=== PATIENT | female | born 1965 | race Caucasian/White ===

== ENCOUNTER → 2018-02-01 07:04 | Outpatient (CLI) | payer OTHER, SELFPAY ==
--- NOTE | 2018-02-01 07:09 | BI_ITS ---
MAMMOGRAPHY - BILATERAL SCREENING REASON FOR EXAM: Female, 53 years old. Routine annual screening examination. PERTINENT HISTORY: Non-contributory. TECHNIQUE: Digital bilateral breast edith (3D mammographic acquisition) in the CC and MLO projections. 2-D mediolateral oblique (MLO) and craniocaudad (CC) views of both breasts were obtained. CAD: Full Field Digital Mammography with Computer Added Detection was performed. COMPARISON: Comparison is made with prior study dated February 13, 2017 and February 10, 2016. FINDINGS: Breast Composition: There are scattered areas of fibroglandular density. There are no dominant masses or suspicious calcifications. No other significant abnormalities are identified. There has been no significant change since the prior study. BI/SCREENING MAMM (CAD), BILAT IMPRESSION: Stable bilateral screening mammogram. Yearly follow-up mammogram recommended. (A) ASSESSMENT CATEGORY: BIRADS Category 1: Negative. A letter regarding these results will be sent to the patient by the facility within 30 days. Approximately 10% of breast cancers are not detected by mammography. A normal mammogram should not delay biopsy of a clinically suspicious abnormality. [id number] Electronically Signed: Germain Cabello MD at 11:22 EDT Tel [phone], Service support ,
== END ==
PROVIDERS: Family Provider Family Medicine; PCP Family Medicine; Visit Provider Obstetrics & Gynecology
DX: Z12.31 Encounter for screening mammogram for malignant neoplasm of breast (principal)
CPT/HCPCS: 77063; 77067

== ENCOUNTER → 2019-02-04 | Outpatient (CLI) | payer OTHER, SELFPAY ==
--- NOTE | 2019-02-04 07:18 | BI_ITS ---
MAMMOGRAPHY - BILATERAL SCREENING REASON FOR EXAM: Female, 54 years old. Routine annual screening examination. PERTINENT HISTORY: Non-contributory. TECHNIQUE: Digital bilateral breast hali (3D mammographic acquisition) in the CC and MLO projections. 2-D mediolateral oblique (MLO) and craniocaudad (CC) views of both breasts were obtained. CAD: Full Field Digital Mammography with Computer Added Detection was performed. COMPARISON: Comparison is made with prior study dated February 01, 2018 and February 13, 2017. FINDINGS: Breast Composition: There are scattered areas of fibroglandular density. There are no dominant masses or suspicious calcifications. No other significant abnormalities are identified. There has been no significant change since the prior study. BI/SCREEN MAMM (CAD) W/HALI BILAT IMPRESSION: Stable bilateral screening mammogram. Yearly follow-up mammogram recommended. (A) ASSESSMENT CATEGORY: BIRADS Category 1: Negative. A letter regarding these results will be sent to the patient by the facility within 30 days. Approximately 10% of breast cancers are not detected by mammography. A normal mammogram should not delay biopsy of a clinically suspicious abnormality. [id number] Electronically Signed: Germain Cabello, at 8:55 EDT , Service support ,
== END | disposition home or self-care (01) ==
LOC: OPBI 07:17
PROVIDERS: Family Provider Family Medicine; PCP Family Medicine; Referring Provider Obstetrics & Gynecology; Visit Provider Obstetrics & Gynecology
DX: Z12.31 Encounter for screening mammogram for malignant neoplasm of breast (principal)
CPT/HCPCS: 77063; 77067

== ENCOUNTER → 2020-03-05 | Outpatient (CLI) | payer OTHER, SELFPAY ==
[2020-03-09 13:49] LABS: HPV APTIMA, High Risk Negative (Negative)
== END | disposition home or self-care (01) ==
LOC: LABSPEC 11:32
PROVIDERS: PCP Family Medicine; Visit Provider Obstetrics & Gynecology
DX: Z12.4 Encounter for screening for malignant neoplasm of cervix (principal)
CPT/HCPCS: 87624; 88175; G0145

== ENCOUNTER → 2020-03-09 08:36 | Outpatient (CLI) | payer OTHER, SELFPAY ==
--- NOTE | 2020-03-09 08:39 | BI_ITS ---
MAMMOGRAPHY - BILATERAL SCREENING REASON FOR EXAM: Female, 55 years old. Routine annual screening examination. PERTINENT HISTORY: Non-contributory. TECHNIQUE: Digital bilateral breast hali (3D mammographic acquisition) in the CC and MLO projections. 2-D mediolateral oblique (MLO) and craniocaudad (CC) views of both breasts were obtained. CAD: Full Field Digital Mammography with Computer Added Detection was performed. COMPARISON: Comparison is made with prior study dated 02/04/2019 and 02/01/2018. FINDINGS: Breast Composition: There are scattered areas of fibroglandular density. There are no dominant masses or suspicious calcifications. No other significant abnormalities are identified. There has been no significant change since the prior study. BI/SCREEN MAMM (CAD) W/HALI BILAT IMPRESSION: Stable bilateral screening mammogram. Yearly follow-up mammogram recommended. (A) ASSESSMENT CATEGORY: BIRADS Category 1: Negative. A letter regarding these results will be sent to the patient by the facility within 30 days. Approximately 10% of breast cancers are not detected by mammography. A normal mammogram should not delay biopsy of a clinically suspicious abnormality. [id number] Electronically Signed: Germain Cabello, at 9:32 EDT , Service support ,
== END ==
PROVIDERS: PCP Family Medicine; Referring Provider Nurse Practitioner Adult Health; Visit Provider Nurse Practitioner Adult Health
DX: Z12.31 Encounter for screening mammogram for malignant neoplasm of breast (principal)
CPT/HCPCS: 77063; 77067

== ENCOUNTER 2020-05-07 11:25 | Observation (INO) | payer OTHER, SELFPAY ==
--- NOTE | 2020-03-24 11:38 | HP_ITS ---
Intake Vital Signs 03/24/20 BMI 29.0 Intake Visit Reasons: Left wrist Accompanied by: Self Is patient in pain?: No Allergies No Known Allergies Allergy (Verified 03/24/20 09:49) Medications acetaminophen 325 mg capsule 325 mg PO ONCE PRN 03/24/20 [History Confirmed 03/24/20] naproxen sodium 220 mg capsule 220 mg PO BID PRN 03/24/20 [History Confirmed 03/24/20] [facility] Medical History (Updated 08/10/17 @ 13:49 by Jadyn Lopez) History of ganglion cyst (Acute) Social History (Updated 03/24/20 @ 11:[address] Bernie Voss DO) Smoking Status: Never smoker alcohol intake: never HPI Left wrist: Chief Complaint: Left wrist Cyst Surgical H&P: Yes Details: Parts of this documentation were recorded by a scribe, this documentation accurately reflects the service provided and the decisions made by me, Dr. Bernie Voss DO 03/24/20 0939. DANNA HOUSTON is a 55 year old F here today for her left wrist. Patient states several years ago, had a cyst removed on the inner aspect of her wrist. Cyst returned about 6 months after. Patient voiced it is bothersome and causes pain at times d/t at work she is always on the computer. Pain flares especially with repetitive activities. OTC medications, will take Tylenol or Aleve prn. Denies usage of ice packs and heat packs d/t being too busy. Denies pain with extension and flexion. ROS Musc Reports system reviewed and no additional complaints, except as docu, Reports joint pain, Denies joint swelling, Denies muscle cramps, Denies muscle weakness, Denies numbness, Denies radiating pain into limb, Denies stiffness, Denies tingling Skin/Breast Reports system reviewed and no additional complaints, except as docu, Denies dry skin, Denies redness, Denies itching, Denies rash, Denies skin swelling, Denies wounds Neuro Yes system reviewed and no additional complaints, except as docu, No numbness, No tingling Ortho Exam Right Wrist/Hand Skin/Wound: No Swelling Left Wrist/Hand Skin/Wound: No Swelling Left Wrist: Yes ROM-Extension 0-60, Yes ROM-Flexion 0-80, Yes ROM-Pronation 0-80 and Yes ROM-Supination 0-90 Motor: EPL: 5, FDP-2: 5, 1st Dorsal Interosseous: 5, APB: 5 Sensation: Radial: I, Ulnar: I, Median: I Assessment & Plan Plan Explained and aducated the pt when the liagament tears, then cyst returns. Discussed removal of the cyst. Patient is in agreement and voiced she would like the cyst removed. Surgery would be: Left boiler ganglion cyst excision. Consents signed today and discussed the Photovoltaic Power Systems Engineer, Lorraine will contact patient to schedule. Patient prefers Monday. Reviewed the pre-operative plans with the patient. Risks and benefits of the procedure were fully explained, including but not limited to infection, neurovascular injury, continued pain, arthritis, stiffness, need for further surgery, re-injury, DVT, PE, general risks of anesthesia, and loss of limb or life. The patient understands all the risks and does wish to proceed with written consent. We discussed the current risk associated COVID-19. While it is understood that there is a community spread of COVID 19 the risk of bi COVID-19 while at [facility] is very low, however, the risk cannot be completely mitigated because of the community spread of the disease. We discussed in detail the risk of exposure to and or potential harm posed by the COVID-19 virus with having a surgery/procedure at this time versus the risk of delaying the surgery/procedure. Is not possible to know either the risk of delaying the surgery procedure or chance of getting an infection with perfect accuracy, but a joint decision was made to proceed at this time with a schedule surgery/procedure as indicated on the consent form. Patient was notified that we will need to comply with any screening or testing [facility] wishes to perform or that surgery may be delayed for any positive results. Discussed cleaning the wrist before surgery and discussed wound care after surgery. Plan to schedule surgery within 30 days, discussed writing a note to be off work for two weeks after surgery. Coding Level of Care Code Off vis,est,level 4 03/24/20 1138 <Electronically signed by Bernie paul DO> Date _ Bernie Voss DO
--- NOTE | 2020-04-30 10:19 | EKG12_ITS ---
Test Reason : PREOP Blood Pressure : / mmHG Vent. Rate : 070 BPM Atrial Rate : 070 BPM P-R Int : 144 ms QRS Dur : 094 ms QT Int : 386 ms P-R-T Axes : 074 038 051 degrees QTc Int : 416 ms Normal sinus rhythm Normal ECG Confirmed by ZEINAB DIEHL, KATINA ([id number]), editorial project manager BRADNIN BUTLER ([id number]) on 05/05/2020 9:03:15 AM Referred By: Shai Dunham Confirmed By:MAGGY ARRIOLA MD
[2020-05-05 08:51] VITALS: BMI 29.0
--- NOTE | 2020-05-06 18:50 | HP.PCM_ITS ---
History and Physical Surgical History and Physical Rebecca Ozuna, a 55 year old female 2 0 0 0 2, presents for Robotic assisted total laparoscopic hysterectomy bilateral salpingo-oophorectomy and possible excision of bartholins gland on May 07, 2020 at 7:30. -- LMP 02/29/2020. Monthly menses that is heavy and very painful. Had previous Toridol shots. Updated medications, allergies, and hx. No complaints other then her menses. Denies drinking,smoking and drug use. High stress life as her father is in bad health. Sexually active with her . Prior tubal. Pap due today, consent signed. PHQ-9 with a score of 0. Mammogram ordered and sent. MK As above, pt s/p ablation still having regular periods but for greater than 1 year the pt has had extremely painful periods during menstruation. This has required Toradol injections and Percocet to control the pain. Pt has tried control with minimal improvement. Pt is debilitated in her daily life from this pain. Pt to have RAVH/BSO 05/07/20. Pt having surgery due to dysmenorrhea, s/p endometrial ablation. Consents and surgery information reviewed with pt. Med ications and allergies are up to date. MEDICATIONS HISTORY: Current medications prescribed by our practice are: 1. desoximetasone 0.25 % topical cream, prn to affected skin ALLERGIES: NKA and No Known Drug Allergies Infections - Chicken pox childhood Illnesses - none Accidents - None Hospitalizations - Childbirth Review of Systems: GENERAL - Denies fever, or chills SKIN - Denies skin changes EYES - Denies visual changes EARS - Denies difficulty hearing NOSE - Denies nasal congestion or bleeding MOUTH - Denies sore throat or difficulty swallowing NECK - Denies pain or swelling RESPIRATORY - Denies shortness of breath or wheezing CARDIOVASCULAR - Denies palpitations or chest pain GASTROINTESTINAL - Denies nausea, vomiting, diarrhea, constipation GENITOURINARY - Denies dysuria, frequency of urination, incontinence of urine MUSCULOSKELETAL - Denies joint or muscle pain NEUROLOGICAL - Denies localized numbness or weakness PSYCHIATRIC - Denies depression or anxiety ENDOCRINE - Denies heat or cold intolerance, weight loss or gain HEMATO-IMMUNOLOGIC - Denies excessive bleeding with cuts SOCIAL HISTORY: Alcohol Use - denies drinking Smoking - denies smoking Diet - balanced Diet Lifestyle - moderate stress lifestyle and Exercise - minimal Seat Belt Use - always 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 m. Maternal history of brain tumor. Paternal Grandfather: DM I. MENSTRUAL HISTORY: LMP Known?- Definite Amount/Duration - 1-2 day, Regularity - Regular, Frequency - monthly days, LMP - 03/31/20, Age Onset Menarche - 14 PAST PREGNANCIES: Total Pregnancies - 2; Full Term Pregnancies - 2; Premature - 0; Abortions, Induced - 0; Abortions, Spontaneous - 0; Ectopics - 0; Multiple Births - 0; Living Children - 2 SURGICAL HISTORY: 1. 12/30/2005 BTO ; Rhiannon Anders M.D. - sterilization request 2. 02/22/2010 Hysteroscopy, Stacia Rose ; Jadyn Quinn M.D. - Menorrhagia 3. 04/15, Ganglion cyst L wrist ; - PHYSICAL EXAM BP- 110/80 Sitting, Right arm, large cuff Temp- 98.2 Weight- 199.53358 lbs Height- 67.00 inch BMI:31.33 CONSTITUTIONAL - NAD, well nourished, and well developed SKIN - No rash, lesions, or ulcers HEENT - Normocephalic, PERRLA, EOMI NECK - No nodes, no nuchal rigidity and thyroid normal size and texture LYMPH NODES - Palpation of lymph nodes in neck and groins within normal limits LUNGS - CTA x2 without wheezes, crackles or rales CARDIAC - Regular rate and rhythm without rubs, murmurs, or gallops ABDOMEN - Without hepatosplenomegaly, distention, masses, rebound, or guarding; normal bowel sounds; no hernias EXTREMITIES - No edema or calf tenderness NEUROLOGICAL - Cranial nerves II-XII grossly intact PSYCHIATRIC - A and O to time, place, person, mood and affect ASSESSMENT/PLAN: 2. 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 Debilitating pain not resolved by IBU, requires Toradol and percocet. Pt in need of surgical management Discussed options. Pt desires robotic hysterectomy bilateral salpingoophorectomy possible excision of bartholins gland cyst Pt at pre op appt with u/s showing uterus 7.6cm Left ovary with complex cyst 5x4cm with 2cm solid component terotoma vs endometrioma. Discussed results including risk of malignancy. R/b/a of surgery discussed. No complication with anesthesia, no CP or SOB when climbing a flight of stairs. No changes in medications. Pt did test positive for COVID 03/23/20, quarantined, according to CDC guidelines no retesting w/in 12 weeks. Pt asymptomatic, discussed with anesthesia and pre op testing. Follow up postoperatively 3. Cyst Of Bartholin's Gland Asymptomatic but in age range will consider biopsy and excision at time of hysterectomy R/b/a discussed will attempt for excision at time of hysterectomy
[2020-05-07] VITALS (14 sets, daily range): BP systolic 107–134; BP diastolic 57–89; PULSE 50–95; RESP 12–18; TEMP 36.1–36.7; O2SAT 97–100; BMI 31.2
[2020-05-07 06:14] LABS: Internal QC Validated? YES +Cl - CLEAR BKGD; Pregnancy, Urine Negative Negative
[2020-05-07] MEDS: Lactated Ringers 1,000 ML 120 ML IV ×3 (06:35→06:40)
[2020-05-07 06:58] LABS: Hemoglobin 12.4 g/dL (12.0-15.0); Mean Corp Hgb Conc 32.6 g/dL (32-36); Mean Corpuscular Hgb 29.7 pg (27.0-32.0); Mean Corpuscular Volume 90.9 fL (81-99); Mean Platelet Vol. 9.2 fl (6.2-12.0); Platelet Count 246 K/mm3 (150-450); RBC Distribution Width CV 12.7 % (11.6-14.6); RBC Distribution Width SD 41.5 fl (35.1-43.9); Red Blood Count 4.18 M/mm3 (4.2-5.4); White Blood Count 7.7 K/mm3 (4.4-11.0)
[2020-05-07] MEDS: Cefotetan 2 GM in 0.9% NS 100 ML IV (07:30)
--- NOTE | 2020-05-07 07:30 | HYST_PTH ---
PATIENT: DANNA HOUSTON LOC: MS3 U#:[id number] AGE/SX: 55/F ROOM: MS316 RE05/07/[address]: Dr. Shai Dunham MD : 1965 BED: 1 DIS: 05/08/2020 SPEC #: [id number] RECD: 05/07/20 11:17 STATUS: JILL FERREIRACarter #: [id number] ALBA: 05/07/20 07:[address]: Shai Dunham DEPT: SURGICAL PATHOLOGY RECD BY: Jamar Dye ENTERED: 05/07/20 11:54 SP TYPE: HYSTERECT OTHR DR: Dr. Bradford Segundo MD Tissues: Uterus, NOS Procedures: Surgery Specimen Level V HEADER OPERATION: Lap robotic hysterectomy, BSO, excision of Bartholin cyst PRE-OP DIAGNOSIS: Dysmenorrhea, Bartholin cyst TISSUE SUBMITTED: Uterus, cervix, bilateral fallopian tubes and ovaries MICROSCOPIC DIAGNOSIS Uterus, cervix, bilateral fallopian tubes and ovaries, hysterectomy and bilateral salpingo-oophorectomy: Cervix - mild chronic cystic cervicitis. Endometrium - proliferative endometrium. Myometrium - intramural leiomyomas (largest measuring 1.2 cm in greatest dimension). Focal superficial adenomyosis. Bilateral fallopian tubes - no pathologic diagnosis. Right ovary - physiologic follicular cyst. Left ovary - mature cystic teratoma, dermoid cyst (6.5 cm in greatest dimension). Physiologic follicular cyst. AM:nabil 05/08/20 MICROSCOPIC DESCRIPTION Slides are reviewed. GROSS DESCRIPTION Received in fixative is one container labeled with the patient's name and designated uterus. The specimen consists of a uterus with attached cervix and attached right and left fallopian tubes, attached right ovary and detached left ovary. The uterus with cervix measures 10 x 7 x 5 cm and weighs 182 gm. The ectocervix is grossly unremarkable. The cervical os is oval in contour. The endocervical canal measures 4 cm in length and is grossly unremarkable. The triangular endometrial cavity measures 3.8 x 3 cm. The velvety, light olivares endometrium measures up to 0.2 cm in thickness. The myometrium measures 2 cm in average thickness and contains four small rubbery nodules ranging in size from 0.3 to 1.2 cm in greatest dimension. The nodules grossly resemble leiomyomas. The right fallopian tube measures 8 cm in length and 0.6 cm in average diameter. The soft tissue adjacent to the fimbriated end contains three small fluid-filled cysts ranging in size from 0.5 to 0.7 cm. The adjacent right ovary is light olivares and measures 3.6 x 2 x 1 cm. Serial sections of the ovary reveal a blood-filled cyst measuring 1.3 cm. The left fallopian tube is similar in appearance to right tube and measures 8.5 cm in length and 0.6 cm in average diameter. No tubo-ovarian adhesions are seen on either fallopian tubes. The cystic left ovary measures 6.5 x 5.2 x 4 cm and weighs 58.5 gm. The external surface is smooth and glistening. The external surface is inked and the ovary serially sectioned to reveal applesauce-like material and hair. The cyst wall averages 0.2 cm in thickness. No excrescences are identified. Office Bookkeeper sections are submitted in 12 cassettes as follows: 1 - anterior cervix, 2 - posterior cervix, 3 & 4 - anterior uterine wall, 5 - posterior uterine wall with myometrial nodules, 6 - posterior uterine wall, 7 - right fallopian tube and paratubal cyst, 8 - right ovary, 9 - left fallopian tube, 10-12 - left ovary. / AM:nabil 05/07/20 TC:1 CPT: 48774
--- NOTE | 2020-05-07 07:30 | FLU_PTH ---
PATIENT: DANNA HOUSTON LOC: MS3 U#:[id number] AGE/SX: 55/F ROOM: MS316 RE05/07/[address]: Dr. Shai Dunham MD : 1965 BED: 1 DIS: 05/08/2020 SPEC #: [id number] RECD: 05/07/20 11:17 STATUS: JILL LITO #: [id number] ALBA: 05/07/20 07:[address]: Shai Dunham DEPT: CYTOLOGY RECD BY: Jamar Dye ENTERED: 05/07/20 11:53 SP TYPE: Fluid OTHR DR: Dr. Bradford Segundo MD Tissues: CYST Procedures: Special Stain Group II Surgery Specimen Level IV Cytospin Fluid HEADER OPERATION: Lap robotic hysterectomy, BSO, excision of Bartholin cyst PRE-OP DIAGNOSIS: Dysmenorrhea, Bartholin cyst TISSUE SUBMITTED: Fluid from cyst for cytology DIAGNOSIS CYTOLOGY Fluid from cyst for cytology (cytospin and cell block): Consistent with inflamed benign cyst, Bartholin cyst. SJ:nabil 05/08/20 CYTOLOGY STUDY Slides are reviewed. CYTOLOGY GROSS Received is 5 ml of red milky turbid fluid labeled with the patient's name and and designated per the requisition as cyst. Submitted for cytology preparation including cell block. / nabil 05/07/20 TC:5 CPT: 45031, 29455
[2020-05-07] MEDS: Ropivacaine 0.5% 30 ML Vial (08:03)
--- NOTE | 2020-05-07 10:51 | OP.PCM_ITS ---
Report of Operation Date of Procedure: 05/07/20 Pre-Operative Diagnosis: Dysmenorrhea, Bartholin's gland cyst, left ovarian cyst Post-Operative Diagnosis: Dysmenorrhea, Bartholin's gland cyst, left ovarian cyst Surgery/Procedure Performed:: Robotic assisted total laparoscopic hysterectomy bilateral salpingo-oophorectomy, cystoscopy, excision of Bartholin's gland cyst Description of Surgical Findings:: EBL: 100 cc Urine output: 100 cc IV fluids: 2700 cc Complications: None Pathology: Uterus bilateral fallopian tubes bilateral ovaries. Bartholin's gland cyst Findings: Retroverted uterus. Left ovary with 4 to 5 cm cyst complex fluid-filled. Right Bartholin's gland cyst 3 cm. Normal uterus cervix and bilateral fallopian tubes. Bilateral ureteral jets noted. Consent: 55-year-old status post ablation and bilateral tubal ligation with dysmenorrhea not resolved with ibuprofen needing Toradol injections for pain control. Patient also found to have complex left ovarian cyst about 4 to 5 cm in size on ultrasound. Along with right Bartholin's gland cyst 3 cm. Patient in need of robotic assisted total laparoscopic hysterectomy bilateral salpingo-oophorectomy and excision of right Bartholin's gland cyst. Patient understands risk procedure include but not limited to visceral or vascular injury, prolonged hospitalization, blood loss need for transfusion, reoperation. Patient said understanding was proceed. All questions consent was signed. Procedure: Patient was brought back to the OR where general anesthesia found be adequate. 2 g of Cefotan were given for infection prophylaxis. Patient's parent draped in a dorsolithotomy position with yellowfin stirrups. A weighted speculum is placed the posterior aspect of the vagina and a single-tooth tenaculum was used to grasp the anterior lip of the cervix. Cervical as he is had a cervix. Uterine manipulator was placed. Varies needle was placed at the umbilicus water safety test was passed abdomen was insufflated 8 millimeter trocar was placed the midline just above the umbilicus camera was inserted above findings were noted. Bilateral 8 millimeter trochars were placed under direct visualization. 5 mm accessory port was placed in the left upper quadrant under direct visualization. Robot was docked with fenestrated bipolar monopolar scissors. Ureters were identified visually. Round ligament cut and cauterized anterior portion of the broad ligament dissected bladder flap was developed on the level colpotomy cup IP ligament was dissected isolated cut and cauterized posterior portion of the broad ligament was dissected in order to further dissect the ut erine vessels. Uterine vessels were cut and cauterized and dissected laterally beyond the level of colpotomy cup. In a similar fashion left lobe tube was identified out to the fimbrae mesosalpinx was cut and cauterized round ligament was cut and cauterized anterior portion of the broad ligament was further dissected to complete the dissection of the bladder flap. Posterior portion of broad ligament was dissected uterine vessels were cut and cauterized dissected laterally upon the level of colpotomy cup colpotomy cup was noted to be displaced robot undocked and colpotomy cup was readjusted. Robot was re-docked using the uterine manipulator posterior portion of colpotomy was performed and circumferential incision was made around the entirety of the colpotomy cup uterus was then removed vaginally. Left ovarian cyst IP ligament was isolated cut and cauterized past vaginally all to go to the pathology. Colpotomy was closed in continuous running fashion. Good hemostasis was noted. Abdomen was deflated trochars were removed under direct visualization. Laparoscopic port sites were closed with subcutaneous suture. Cystoscopy was performed bilateral ureteral jets were noted no other pathology was noted. Right Bartholin's gland was excised. Good hemostasis noted. All counts correct x2. Patient taught procedure well was brought recovery stable condition. magazine hand: Bj Gross Type of Anesthesia:: General
[2020-05-07 11:21] LABS: Cytology, Body Fluid / CSF SEE PATHOLOGY REPORT
[2020-05-07] MEDS: Ketorolac 30 MG/ML Syringe IV ×2 (11:49→17:21)
[2020-05-07] MEDS: HYDROmorphone 0.5 MG/0.5 ML SYRINGE IV (13:18)
[2020-05-07] MEDS: 0.9% Saline Lock 10 ML Syringe IV ×2 (13:18→21:59)
[2020-05-07] MEDS: Acetaminophen 500 MG Tablet 1000 MG PO ×2 (14:12→21:59)
[2020-05-07] MEDS: oxyCODONE 5 MG Tablet PO (21:04)
[2020-05-08] MEDS: 0.9% Saline Lock 10 ML Syringe IV ×2 (00:33→05:50)
[2020-05-08] MEDS: Ketorolac 30 MG/ML Syringe IV ×2 (00:33→05:49)
[2020-05-08] MEDS: oxyCODONE 5 MG Tablet PO ×2 (01:43→08:19)
[2020-05-08 05:00] VITALS: BP 91/53; PULSE 65; RESP 16; TEMP 36.7; O2SAT 96
[2020-05-08] MEDS: Acetaminophen 500 MG Tablet 1000 MG PO (05:48)
[2020-05-08 07:52] VITALS: O2SAT 94
--- NOTE | 2020-05-08 08:11 | PN.OBGYN_ITS ---
Subjective: No overnight complaints. Pain well controlled. Ambulating, voiding spontaneously. Denies chest pain, shortness of breath, nausea vomiting. - Physical Exam Vitals/I&O's: Vital Signs Temp Pulse Resp BP Pulse Ox 98.1 F 65 16 91/53 L 96 05/08/20 05:00 05/08/20 05:00 05/08/20 05:00 05/08/20 05:00 05/08/20 05:00 Oxygen Flow Rate (L/min) 2 Oxygen Delivery Method Room Air Weight: 199 lb 11.821 oz Body Mass Index (BMI) 31.2 Intake and Output for Last 24 Hours 05/06/20 05/07/20 05/08/20 23:59 23:59 23:59 Intake Total 3300 / 3300 Output Total 800 / 800 Balance 2500 / 2500 General: Alert, Oriented x3, Cooperative, No apparent distress HEENT: Atraumatic, Normocephalic Oral: Moist Mucosa Neck: Supple Lungs: Clear to auscultation, No wheeze, No rales Cardiovascular: Regular rate, Regular Rhythm Abdomen: Bowel Sounds Present, Soft, Non Tender, Non-Distended, - - Laparoscopic incision sites clean dry and intact Extremities: No clubbing, No cyanosis, No edema Lymphatic: No Cervical, Supraclavicular, or Inguinal Adenopathy Psych/Mental Status: Normal Affect, Appropriate, Alert and oriented to time, place, person, mood and affect Laboratory Results 05/07/20 11:17: Miscellaneous Cytology Pending Current Medications Acetaminophen (Tylenol) 1,000 mg PO Q8 [facility] Last Admin: 05/08/20 05:48 Dose: 1,000 mg Documented by: Enoxaparin Sodium (Lovenox) 40 mg SC DAILY [facility] Hydromorphone HCl (Dilaudid Inj) 0.5 - 1.5 mg IV Q3H PRN PRN PRN Reason: Pain Score 4-10/10 Hydromorphone HCl (Dilaudid Inj) 0.5 - 1.5 mg IV Q3H PRN PRN PRN Reason: Pain Score 4-10/10 Last Admin: 05/07/20 13:18 Dose: 0.5 mg Documented by: Ondansetron HCl (Zofran) 4 mg IV Q4H PRN PRN PRN Reason: NAUSEA Oxycodone HCl (Oxyir) 5 - 10 mg PO Q4H PRN PRN PRN Reason: Pain Score 4-1010 Last Admin: 05/08/20 01:43 Dose: 5 mg Documented by: Sodium Chloride () 10 - 40 ml IV UD PRN PRN Reason: SALINE FLUSH Last Admin: 05/08/20 05:50 Dose: 10 ml Documented by: Medical Necessity - Tobacco Use Smoking Status: Never smoker Tobacco Use: Non-smoker Assessment/Plan All Active Problems (Last Updated 08/10/17 @ 13:49 by Jadyn Lopez) Physical exam, pre-employment (Acute) Postoperative day 1 status post robotic assisted total laparoscopic hysterectomy bilateral salpingo-oophorectomy, cystoscopy, excision of the right Bartholin's gland cyst. Pain well controlled, Rx for oxycodone sent to pharmacy. Tolerating regular diet, ambulating, voiding spontaneously. Okay to HI home today.
--- NOTE | 2020-05-08 08:14 | DCINST_ITS ---
Discharge Diet: No Restrictions Discharge Activity: Return to Normal Activity, May not drive while taking narcotic pain medications., May Shower May resume sexual activity in: 2 weeks Lifting Restrictions: No lifting over 25 pounds for 2 to 3 weeks Call your doctor if your incision/area has: Foul Smelling Discharge Call your doctor if you observe: Fever of 101 or Higher, Inability to urinate, Inability to have a bowel movement, Shortness of breath, Chest pain Allergies/Adverse Reactions: Allergies No Known Allergies Allergy (Verified 05/07/20 06:03) Medications to take at Discharge Oxycodone [Oxyir] 5 mg PO Q6H PRN PRN 5 Days #20 tab 05/07/20 The following prescriptions were given: Oxycodone [Oxyir] 5 mg PO Q6H PRN PRN 5 Days #20 tab PRN Reason: Pain Score 6-10 Transmission Status: Received by [id number] Orders to be completed after discharge: CORONAVIRUS 19, RACH SENDOUT Time Frame: 04/30/20, Facility: [facility], Location: Laboratory Primary Care Physician: Bradford Segundo MD [Primary Care Provider] - Test Results: Test results from this visit will be discussed in further detail at your follow- up appointment, if applicable. Please Follow Up With: Shai Dunham MD When: At scheduled appointment Proposed Discharge Date: 05/08/20
[2020-05-08 08:20] VITALS: BP 115/70; PULSE 76; RESP 16; TEMP 36.4; O2SAT 96
[2020-05-08] MEDS: Enoxaparin 40 MG/0.4 ML Syringe SC (08:25)
== END 2020-05-08 10:00 | disposition home or self-care (01) ==
LOC: SDC 11:54 → MS3 11:54
PROVIDERS: Anesthesiology; Admitting Provider Obstetrics & Gynecology; PCP Family Medicine; Referring Provider Obstetrics & Gynecology; Visit Provider Obstetrics & Gynecology
PROC: 0UT94ZZ Resection of Uterus, Percutaneous Endoscopic Approach (ICD-10-PCS; principal; 2020-05-07 07:10)
DX: D25.1 Intramural leiomyoma of uterus (principal); N83.02 Follicular cyst of left ovary; N83.01 Follicular cyst of right ovary; N75.0 Cyst of Bartholin's gland; N80.0 Endometriosis of uterus
CPT/HCPCS: 00940; 56740; 58571; S2900; 81025; 85027; 86850; 86900; 86901; 88108; 88304; 88305; 88307; 88313; 93005; 96372; 96374; 96375; 96376; 99218; 99251; J7120; A4216; G0378; G0379; G0463; J2405

== ENCOUNTER 2020-06-05 09:43 | Day surgery (SDC) | payer OTHER, SELFPAY ==
[2020-03-24 09:39] VITALS: BMI 29.0
--- NOTE | 2020-03-24 11:38 | HP_ITS ---
I have re-examined the patient. There are no clinical changes since date of exam. Intake Vital Signs 03/24/20 BMI 29.0 Intake Visit Reasons: Left wrist Accompanied by: Self Is patient in pain?: No Allergies No Known Allergies Allergy (Verified 03/24/20 09:49) Medications acetaminophen 325 mg capsule 325 mg PO ONCE PRN 03/24/20 [History Confirmed 03/24/20] naproxen sodium 220 mg capsule 220 mg PO BID PRN 03/24/20 [History Confirmed 03/24/20] [facility] Medical History (Updated 08/10/17 @ 13:49 by Jadyn Lopez) History of ganglion cyst (Acute) Social History (Updated 03/24/20 @ 11:[address] Bernie Voss DO) Smoking Status: Never smoker alcohol intake: never HPI Left wrist: Chief Complaint: Left wrist Cyst Surgical H&P: Yes Details: Parts of this documentation were recorded by a scribe, this documentation accurately reflects the service provided and the decisions made by me, Dr. Bernie Voss DO 03/24/20 0939. DANNA HOUSTON is a 55 year old F here today for her left wrist. Patient states several years ago, had a cyst removed on the inner aspect of her wrist. Cyst returned about 6 months after. Patient voiced it is bothersome and causes pain at times d/t at work she is always on the computer. Pain flares especially with repetitive activities. OTC medications, will take Tylenol or Aleve prn. Denies usage of ice packs and heat packs d/t being too busy. Denies pain with extension and flexion. ROS Musc Reports system reviewed and no additional complaints, except as docu, Reports joint pain, Denies joint swelling, Denies muscle cramps, Denies muscle weakness, Denies numbness, Denies radiating pain into limb, Denies stiffness, Denies tingling Skin/Breast Reports system reviewed and no additional complaints, except as docu, Denies dry skin, Denies redness, Denies itching, Denies rash, Denies skin swelling, Denies wounds Neuro Yes system reviewed and no additional complaints, except as docu, No numbness, No tingling Ortho Exam Right Wrist/Hand Skin/Wound: No Swelling Left Wrist/Hand Skin/Wound: No Swelling Left Wrist: Yes ROM-Extension 0-60, Yes ROM-Flexion 0-80, Yes ROM-Pronation 0-80 and Yes ROM-Supination 0-90 Motor: EPL: 5, FDP-2: 5, 1st Dorsal Interosseous: 5, APB: 5 Sensation: Radial: I, Ulnar: I, Median: I Assessment & Plan Plan Explained and aducated the pt when the liagament tears, then cyst returns. Discussed removal of the cyst. Patient is in agreement and voiced she would like the cyst removed. Surgery would be: Left boiler ganglion cyst excision. Consents signed today and discussed the Fine Wire Drawer, Lorraine will contact patient to schedule. Patient prefers Monday. Reviewed the pre-operative plans with the patient. Risks and benefits of the procedure were fully explained, including but not limited to infection, neurovascular injury, continued pain, arthritis, stiffness, need for further surgery, re-injury, DVT, PE, general risks of anesthesia, and loss of limb or life. The patient understands all the risks and does wish to proceed with written consent. We discussed the current risk associated COVID-19. While it is understood that there is a community spread of COVID 19 the risk of bi COVID-19 while at [facility] is very low, however, the risk cannot be completely mitigated because of the community spread of the disease. We discussed in detail the risk of exposure to and or potential harm posed by the COVID-19 virus with having a surgery/procedure at this time versus the risk of delaying the surgery/procedure. Is not possible to know either the risk of delaying the surgery procedure or chance of getting an infection with perfect accuracy, but a joint decision was made to proceed at this time with a schedule surgery/procedure as indicated on the consent form. Patient was notified that we will need to comply with any screening or testing [facility] wishes to perform or that surgery may be delayed for any positive results. Discussed cleaning the wrist before surgery and discussed wound care after surgery. Plan to schedule surgery within 30 days, discussed writing a note to be off work for two weeks after surgery. Coding Level of Care Code Off vis,est,level 4 03/24/20 1138 <Electronically signed by Bernie paul DO> Date _ Bernie Voss DO
[2020-05-07 13:08] VITALS: BMI 31.2
--- NOTE | 2020-06-05 06:16 | HP_ITS ---
I have re-examined the patient. There are no clinical changes since date of exam. Intake Vital Signs 03/24/20 BMI 29.0 Intake Visit Reasons: Left wrist Accompanied by: Self Is patient in pain?: No Allergies No Known Allergies Allergy (Verified 03/24/20 09:49) Medications acetaminophen 325 mg capsule 325 mg PO ONCE PRN 03/24/20 [History Confirmed 03/24/20] naproxen sodium 220 mg capsule 220 mg PO BID PRN 03/24/20 [History Confirmed 03/24/20] [facility] Medical History (Updated 08/10/17 @ 13:49 by Jadyn Lopez) History of ganglion cyst (Acute) Social History (Updated 03/24/20 @ 11:[address] Bernie Voss DO) Smoking Status: Never smoker alcohol intake: never HPI Left wrist: Chief Complaint: Left wrist Cyst Surgical H&P: Yes Details: Parts of this documentation were recorded by a scribe, this documentation accurately reflects the service provided and the decisions made by me, Dr. Bernie Voss DO 03/24/20 0939. DANNA HOUSTON is a 55 year old F here today for her left wrist. Patient states several years ago, had a cyst removed on the inner aspect of her wrist. Cyst returned about 6 months after. Patient voiced it is bothersome and causes pain at times d/t at work she is always on the computer. Pain flares especially with repetitive activities. OTC medications, will take Tylenol or Aleve prn. Denies usage of ice packs and heat packs d/t being too busy. Denies pain with extension and flexion. ROS Musc Reports system reviewed and no additional complaints, except as docu, Reports joint pain, Denies joint swelling, Denies muscle cramps, Denies muscle weakness, Denies numbness, Denies radiating pain into limb, Denies stiffness, Denies tingling Skin/Breast Reports system reviewed and no additional complaints, except as docu, Denies dry skin, Denies redness, Denies itching, Denies rash, Denies skin swelling, Denies wounds Neuro Yes system reviewed and no additional complaints, except as docu, No numbness, No tingling Ortho Exam Right Wrist/Hand Skin/Wound: No Swelling Left Wrist/Hand Skin/Wound: No Swelling Left Wrist: Yes ROM-Extension 0-60, Yes ROM-Flexion 0-80, Yes ROM-Pronation 0-80 and Yes ROM-Supination 0-90 Motor: EPL: 5, FDP-2: 5, 1st Dorsal Interosseous: 5, APB: 5 Sensation: Radial: I, Ulnar: I, Median: I Assessment & Plan Plan Explained and aducated the pt when the liagament tears, then cyst returns. Discussed removal of the cyst. Patient is in agreement and voiced she would like the cyst removed. Surgery would be: Left boiler ganglion cyst excision. Consents signed today and discussed the Promotion Specialist, Lorraine will contact patient to schedule. Patient prefers Monday. Reviewed the pre-operative plans with the patient. Risks and benefits of the procedure were fully explained, including but not limited to infection, neurovascular injury, continued pain, arthritis, stiffness, need for further surgery, re-injury, DVT, PE, general risks of anesthesia, and loss of limb or life. The patient understands all the risks and does wish to proceed with written consent. We discussed the current risk associated COVID-19. While it is understood that there is a community spread of COVID 19 the risk of bi COVID-19 while at [facility] is very low, however, the risk cannot be completely mitigated because of the community spread of the disease. We discussed in detail the risk of exposure to and or potential harm posed by the COVID-19 virus with having a surgery/procedure at this time versus the risk of delaying the surgery/procedure. Is not possible to know either the risk of delaying the surgery procedure or chance of getting an infection with perfect accuracy, but a joint decision was made to proceed at this time with a schedule surgery/procedure as indicated on the consent form. Patient was notified that we will need to comply with any screening or testing [facility] wishes to perform or that surgery may be delayed for any positive results. Discussed cleaning the wrist before surgery and discussed wound care after surgery. Plan to schedule surgery within 30 days, discussed writing a note to be off work for two weeks after surgery. Coding Level of Care Code Off vis,est,level 4
[2020-06-05 10:21] VITALS: BP 111/71; PULSE 62; RESP 16; TEMP 36.3; O2SAT 98; BMI 30.9
[2020-06-05] MEDS: Lactated Ringers 1,000 ML 100 ML IV (10:27)
--- NOTE | 2020-06-05 10:55 | CYST_PTH ---
PATIENT: DANNA HOUSTON LOC: [facility] U#:[id number] AGE/SX: 55/F ROOM: RE06/05/[address]: Dr. Bernie Voss DO : 1965 BED: DIS: 06/05/2020 SPEC #: [id number] RECD: 06/05/20 14:44 STATUS: JILL LITO #: [id number] ALBA: 06/05/20 10:[address]: Bernie Voss DEPT: SURGICAL PATHOLOGY RECD BY: Stacey Goodwin ENTERED: 06/08/20 08:34 SP TYPE: Cyst OTHR DR: Dr. Bradford Segundo MD Tissues: CYST Procedures: Surgery Specimen Level III HEADER OPERATION: Left volar ganglion cyst excision PRE-OP DIAGNOSIS: Left wrist cyst TISSUE SUBMITTED: Ganglion cyst MICROSCOPIC DIAGNOSIS Ganglion cyst, left wrist, excision: Consistent with ganglion cyst. LAURIE:nabil 06/09/20 MICROSCOPIC DESCRIPTION Slides are reviewed. GROSS DESCRIPTION Received in fixative is one container labeled with the patient's name and designated ganglion cyst. The specimen consists of a piece of olivares soft tissue measuring 3 x 0.6 x 0.5 cm. The specimen is submitted entirely in one cassette. / SJ:nabil 06/08/20 TC:5 CPT: 81859
--- NOTE | 2020-06-05 11:57 | DCINST_ITS ---
Discharge Diet: No Restrictions - keep dressing clean and dry and intact, follow up in 2 weeks, call with concerns Discharge Activity: May Not Drive May shower in (days): 1 Ice area for (Minutes): 20 - Every hour while awake. Weight Bearing Status: Weight bearing as tolerated Keep extremity elevated above heart level: Operative Extremity Call your doctor if your incision/area has: Continuous Slow Oozing, Sudden Increased Bleeding, Increased Pain/ Swelling, Increased Redness, Foul Smelling Discharge Call your doctor if you observe: Fever of 101 or Higher, Coldness, Increased Pain, Numbness or Tingling, Change in Color, Calf discomfort Allergies/Adverse Reactions: Allergies No Known Allergies Allergy (Verified 06/05/20 09:58) Medications to take at Discharge Oxycodone HCl/Acetaminophen [Percocet 5/325] 1 - 2 tab PO Q6H PRN PRN 5 Days #28 tab 06/05/20 The following prescriptions were given: Oxycodone HCl/Acetaminophen [Percocet 5/325] 1 - 2 tab PO Q6H PRN PRN 5 Days #28 tab PRN Reason: Pain Transmission Status: Received by [facility]/pharmacy #[id number] Primary Care Physician: Bradford Segundo MD [Primary Care Provider] - Test Results: Test results from this visit will be discussed in further detail at your follow- up appointment, if applicable. Please Follow Up With: Bernie Voss, DO - [phone]
--- NOTE | 2020-06-05 11:57 | PCM.OPRPT ---
Report of Operation Date of Procedure: 06/05/20 Pre-Operative Diagnosis: left recurrent ganglion cyst- volar/radial Post-Operative Diagnosis: same Anesthesiologist: David Echols Specimen's removed: ganglion cyst Estimated Blood Loss (mL): none Fluids Replaced: 900cc Description of Procedure: Preop note Patient is a 55-year-old female with continued pain at the site of a recurrent left volar ganglion cyst. Risk-benefit and alternatives were discussed with patient. Risk include but not limited to blood loss, blood clot, infection, neurovascular, failure procedure, loss of life and loss of limb. Patient is aware like proceed with left volar ganglion cyst. Current excision. Operative note Patient seen and examined preop holding area. Left hand was marked. Patient brought the operating placed supine on the operating table. Signed, anesthesia, antibiotics were administered. Left arm was prepped and draped usual technique with a tourniquet on her upper arm. All bony promises well-padded SCDs placed on her bilateral lower extremity. We then marked our incision from her previous incision and 45 degree angles across the palpable volar ganglion is that also extending about a centimeter half distally and proximally. Timeout was performed. Then elevate exsanguinated the arm turn was placed with pressure of 250 torr. We then able to visualize a ganglion cyst which was skin tear into the radial artery. Because of this I did take this quite a bit of time to tease off the cyst from the radial artery. All neurovascular structures were protected and at all times we were able to do so in its entirety and also found the stalk which was also truncated at space very deep into the wrist we then moved the wrist in both flexion extension to ensure that there was no leakage of any joint fluid and there was not. We irrigated the incision with copious muscle sterile saline. We let the tourniquet down to ensure that there was no bleeding from the radial artery which there was not. After watching this for about a period of 5 to 10 minutes ensuring that there was no bleeding or no bruising at the incision site or from the radial artery we then closed with the skin with 3 oh start 4-0 Vicryl and 4-0 nylon for the skin plate. Sterile dressings and a splint was applied to the left upper extremity extremity. Patient taught procedure well no complications transferred recovery room in stable condition. The tourniquet was deflated for total working time of 50 minutes. Postoperative note Nonweightbearing left upper extremity Pharmacy has prescriptions Call with increased pain numbness tingling or other issues arise Bashir disclaimer
[2020-06-05] MEDS: Cefazolin 2 GM in 0.9% Normal Saline 100 ML IV (12:22)
[2020-06-05] MEDS: Mupirocin Ointment 22gm Tube 1 APPLIC (13:30)
[2020-06-05 13:57] VITALS: BP 111/71; BP 124/91; PULSE 72; RESP 18; TEMP 35.9; O2SAT 99
[2020-06-05 14:00] VITALS: BP 111/71; BP 125/83; PULSE 74; RESP 18; O2SAT 97
[2020-06-05 14:15] VITALS: BP 111/71; BP 124/73; PULSE 66; RESP 14; O2SAT 94
[2020-06-05 14:28] VITALS: BP 111/71; BP 128/69; PULSE 63; RESP 18; TEMP 36.1; O2SAT 98
[2020-06-05] MEDS: Ondansetron 4 MG/2 ML Vial IV (15:04)
[2020-06-05] MEDS: HYDROcodone Bitartrate/Apap 5/325 Tablet PO (15:04)
[2020-06-05 16:12] VITALS: BP 111/71; BP 112/65; PULSE 89; RESP 16; TEMP 36.7; O2SAT 97
== END 2020-06-05 16:14 | disposition home or self-care (01) ==
LOC: SDC 09:52 → AC 09:52
PROVIDERS: PCP Family Medicine; Referring Provider Orthopaedic Surgery; Visit Provider Orthopaedic Surgery
PROC: (CPT 25111; principal; 2020-06-05 10:40)
DX: M67.432 Ganglion, left wrist (principal)
CPT/HCPCS: 01810; 25111; 88304; J7120; J2405

== ENCOUNTER 2020-11-12 17:00 | Outpatient (RCR) | payer OTHER, SELFPAY ==
--- NOTE | 2020-10-01 09:23 | HP.PTEVAL ---
Patient's Visit Information DANNA HOUSTON is a 55 year old F referred to Physical Therapy by Dr. Andrew Estrella DPM with a diagnosis of Achilles tenonditis. Date of Evaluation: 10/01/20 Physical Therapist: Amanda Diaz DPT - Visit Plan Frequency: 1x/Week Duration: 4 Weeks Plan: L>R achilles tendionitis. To perform US, flexibilty, strength, and balance internventions to improve I functioinal mobility and tolerance for work (on feet all day) - Subjective Pt went to see Dr. Estrella, heel spurs on back of each heel, L is worse with pain. Is in tennis shoes and states she cannot wear them at all, at work wear danskos with heel insert and heel lift. 2-4 years, noticed big difference since helping parents this past year, being on feet constantly and wearing wrong shoes. Pain: 1/10, tightness in heel, in bottom of heel and around back of heel, does not radiate. numbness and tingling on R side from sciatica. (low back to toes)- secondary problem. worst: 5/10 on feet all day, and go down stairs. better: 1/10 'tightness better when elevated and not on it. sleep: wears heel boot to sleep only on L- has only had a week, pain does not wake up at night. Meds: alleve every so often, vitamins. 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 wears danskos at work, up and down stairs all day. PMHx: unremarkable. Dr. Estrella gave her exercises but she does not do them, also is thinking about EPAT- was educated on this my PT - Objective Posture: FH, RS. palpation: no tenderness to touch. Gait: antaglic, + trendelenburg bilateral, poor heel toe progression. stairs: single HR with recip pattern ascending, bilateral HR descending with recip pattern, poor eccentric control. HR/TR: able with no increase in pain. SLS: R 3 seconds before LOB, L 6 seconds before LOB. ROM: hip/knee: WFL ankle: DF: 7, PF: 27. Strength: hip: 4/5 in all planes, knee: 4+/5 in all planes, ankle: 4/5 in all planes. flexibilty: gastroc: severe, hamstring: severe - Goals Goal 1:: Pt will be I with HEP and progression Goal Time Frame: 4-6 Weeks Goal 2:: Pt will report 1/10 pain for 1 week in order to promote I functional mobility Goal Time Frame: 4-6 Weeks Goal 3:: Pt will demonstrate SLS on L and R for 10 seconds in order to promote increased strength and stability Goal Time Frame: 4-6 Weeks - Rehabilitation Potential Physical Therapy Diagnosis: Pt presents with decreased flexibilty, ROM and strength impacting ability to ambulate with proper gait mecahnics and perform I functional mobility Rehabilitation Potential: Good - Anticipated Interventions Patient/Client Instruction: Educate patient on: Plan of Care For the Purpose of:: To improve muscle performance and motor function Therapeutic Exercise to Include: Strength training, Power training, Endurance training, Balance training, Coordination, Agility training, Body mechanics, Postural training, Flexibilty training, Passive ROM, Active ROM For the Purpose of:: To improve muscle performance and motor function, To increase tolerance to activity/condition/position Cryotherapy (ice pack, ice massage): Yes Thermo therapy (hot pack): Yes Ultrasound (thermal/non thermal): Yes Thank you for the opportunity to evaluate your patient. For Medicare and Medicare HMO plans, please review the plan of care and approve it. It will need to be FAXED BACK to us at [phone] for Medicare purposes. For Medicare only, by signing this I certify the plan of care. Please let me know if there are questions or concerns regarding this plan of care. Physician Signature: Date:
--- NOTE | 2020-11-12 17:31 | HP.PTREVAL ---
Dr. Andrew Estrella, DPM, It has been my pleasure to treat DANNA HOUSTON over the last 2 visits for Achilles tenonditis. Please see the progress note below for an update on the physical therapy plan of care! Subjective: She has been working a crazy and the left is really bad but the right is also a little painful. She is wearing the boot at night which is helping. She is having a lot more luck with [employer] shoes with the heel. Objective/Function: Posture: FH, RS. palpation: no tenderness to touch. Gait: antaglic, + trendelenburg bilateral, poor heel toe progression. stairs: single HR with recip pattern ascending, bilateral HR descending with recip pattern, poor eccentric control. HR/TR: able with no increase in pain. SLS: R 3 seconds before LOB, L 6 seconds before LOB. ROM: hip/knee: WFL ankle: DF: 7, PF: 27. Strength: hip: 4/5 in all planes, knee: 4+/5 in all planes, ankle: 4/5 in all planes. flexibilty: gastroc: severe, hamstring: severe Plan Plan: L>R achilles tendionitis. To perform US, flexibilty, strength, and balance internventions to improve I functioinal mobility and tolerance for work (on feet all day). 11/12/2020: Continue POC- pt was busy with work will start again Goals Goal 1:: Pt will be I with HEP and progression Goal Time Frame: 4-6 Weeks Goal 2:: Pt will report 1/10 pain for 1 week in order to promote I functional mobility Goal Time Frame: 4-6 Weeks Goal 3:: Pt will demonstrate SLS on L and R for 10 seconds in order to promote increased strength and stability Goal Time Frame: 4-6 Weeks Anticipated Interventions Patient/Client Instruction: Educate patient on: Plan of Care For the Purpose of:: To improve muscle performance and motor function Therapeutic Exercise to Include: Strength training, Power training, Endurance training, Balance training, Coordination, Agility training, Body mechanics, Postural training, Flexibilty training, Passive ROM, Active ROM For the Purpose of:: To improve muscle performance and motor function, To increase tolerance to activity/condition/position Cryotherapy (ice pack, ice massage): Yes Thermo therapy (hot pack): Yes Ultrasound (thermal/non thermal): Yes Please do not hesitate to contact me at [phone] by phone or if you have questions or concerns regarding this new plan of care! Sincerely, MOUNA RangelT
== END 2020-11-12 19:00 | disposition home or self-care (01) ==
LOC: PT 17:00
PROVIDERS: PCP Family Medicine; Referring Provider Podiatrist; Visit Provider Podiatrist
DX: M76.61 Achilles tendinitis, right leg (principal); M76.62 Achilles tendinitis, left leg
CPT/HCPCS: 97035; 97162; 97164; 97530

== ENCOUNTER 2021-08-02 07:57 | Outpatient (CLI) | payer OTHER, SELFPAY ==
--- NOTE | 2021-08-02 08:01 | BI_ITS ---
MAMMOGRAPHY - BILATERAL SCREENING REASON FOR EXAM: Female, 56 years old. Routine annual screening examination. PERTINENT HISTORY: Non-contributory. TECHNIQUE: Digital bilateral breast hali (3D mammographic acquisition) in the CC and MLO projections. 2-D mediolateral oblique (MLO) and craniocaudad (CC) views of both breasts were obtained. CAD: Full Field Digital Mammography with Computer Added Detection was performed. COMPARISON: Comparison is made with prior study dated 03/09/2020 and 02/04/2019. FINDINGS: Breast Composition: The breasts are almost entirely fatty. There are no dominant masses or suspicious calcifications. No other significant abnormalities are identified. There has been no significant change since the prior study. BI/SCRN MAMM (CAD)W/HALI BILAT IMPRESSION: Stable bilateral screening mammogram. Yearly follow-up mammogram recommended. (A) ASSESSMENT CATEGORY: BIRADS Category 1: Negative. A letter regarding these results will be sent to the patient by the facility within 30 days. Approximately 10% of breast cancers are not detected by mammography. A normal mammogram should not delay biopsy of a clinically suspicious abnormality. [id number] Electronically Signed: Germain Cabello MD at 9:57 EST , Service support ,
--- NOTE | 2021-08-02 08:31 | MRI_ITS ---
STUDY: MRI LEFT ANKLE WITHOUT CONTRAST REASON FOR EXAM: Posterior heel pain for 5 years, evaluate for Achilles tendon tear. TECHNIQUE: Standardized fat and water weighted pulse sequences were obtained in all 3 orthogonal planes. COMPARISON: None. FINDINGS: There is mild edema in the medial subcutis adipose space. There is a very small volume of fluid in the perimalleolar posterior tibialis tendon sheath (inversion recovery sagittal image 5). The posterior tibialis tendon is morphologically normal. Normal flexor digitorum longus tendon. Normal flexor hallucis longus tendon. Normal peroneus longus and brevis tendons. Normal tibialis anterior tendon. Normal extensor hallucis longus tendon. Normal extensor digitorum longus tendons. There is mild insertional Achilles tendinosis and a very small intrasubstance partial tear of the Achilles tendon insertion (inversion recovery sagittal image 13) measuring 0.3 cm in length. There is a posterior calcaneal enthesophyte. Normal plantar fascia. There is a small plantar calcaneal enthesophyte. Normal intrinsic muscles of the rearfoot. Normal distal tibiofibular syndesmotic ligamentous complex. Normal lateral ligamentous complex. There is a ganglion cyst at the dorsal aspect of the distal talus extending into the sinus tarsi (inversion recovery sagittal images 10-13) measuring 1.5 cm in AP dimension. Normal deltoid ligamentous complexes. Normal plantar calcaneonavicular (spring) ligament. There is an osteochondral lesion of the posterior medial aspect of the tibial plafond (T1 sagittal images 9, 10) measuring approximately 0.8 cm in AP and transverse dimensions with cystic change of the fragment (T2 coronal image 13). Normal talar dome. Normal subtalar articulations. Normal talonavicular articulation. Normal calcaneocuboid articulation. Normal navicular-cuneiform articulations. MRI/Lower Ext Joint Only (Routine) IMPRESSION: Mild insertional Achilles tendinosis with a very small intrasubstance partial Achilles tendon insertion tear. Osteochondral lesion of the tibial plafond. Very mild posterior tibialis tenosynovitis. Ganglion cyst at the dorsal aspect of the distal talus extending into the sinus tarsi. Electronically Signed: Joaquín Moon MD at 14:03 EST Tel , Service support ,
== END 2021-08-02 23:59 | disposition short-term general hospital (02) ==
PROVIDERS: PCP Family Medicine; Referring Provider Nurse Practitioner Family; Visit Provider Nurse Practitioner Family
DX: Z12.31 Encounter for screening mammogram for malignant neoplasm of breast (principal)
CPT/HCPCS: 73721; 77063; 77067

== ENCOUNTER 2021-12-06 09:22 | Emergency (ER) | payer OTHER, SELFPAY ==
[2021-12-06 09:23] VITALS: BP 104/86; PULSE 81; RESP 16; TEMP 36.2; O2SAT 99; BMI 33.7
--- NOTE | 2021-12-06 09:54 | EDS_ITS ---
HPI History of Present Illness Chief Complaint: Lower Extremity Injury Narrative Narrative: Patient presents with right knee pain. She has had this pain for the past 2 days she was helping build and move some bricks over the weekend. No other trauma. No posterior pain. No calf pain or lower extremity edema. No DVT or PE risk factors PFSH PFS Medical History History of ganglion cyst Home Medications cholecalciferol (vitamin D3) 125 mcg (5,000 unit) capsule 125 mcg PO DAILY 07/28/20 [History Last Taken Unknown] multivit with [id number]-tqxp-SU-lutein 8 mg iron-400 mcg-300 mcg tablet 1 tab PO DAILY 07/28/20 [History Last Taken Unknown] hydrocodone-acetaminophen 1 tab PO QHS PRN 3 Days #10 tab 12/06/21 [Rx Last Taken Unknown] Allergy/AdvReac Type Severity Reaction Status Date / Time No Known Allergies Allergy Verified 12/06/21 09:26 Surgical History History of hysterectomy Social History Smoking Status: Never smoker alcohol intake: never ROS ROS ED ROS Narrative Past medical history: none Medications: Reviewed Social history: Noncontributory Review of systems: Musculoskeletal: Right lateral knee pain as in HPI Skin: No abrasions or lacerations Neurological: No weakness or paresthesias Hematologic: No easy bleeding or easy bruising EXAM Physical Exam Narrative Exam Narrative: Physical exam General: Patient does not appear in significant distress . Head: Normocephalic, Atraumatic Neck: No C-spine tenderness Cardiovascular: Normal distal pulses Back: Nontender, Normal Inspection. Extremities: Right knee shows tenderness over the lateral collateral ligament. Patient has more pain with valgus then with varus movement indicating that this is likely lateral collateral ligament issue. There is no laxity on anterior posterior medial or lateral stressors. Extensor mechanisms intact. There is no effusion. There is no posterior tenderness. No calf pain no lower extremity edema no ankle or hip pain. Skin: No abrasions, no lacerations Neurological: Normal strength and sensation Const Vital Signs: 12/06/21 09:23 Temperature 97.2 F L Temperature Source Temporal Pulse Rate 81 Respiratory Rate 16 Blood Pressure 104/86 H Blood Pressure Mean 92 Pulse Ox 99 Oxygen Delivery Method Room Air MDM MDM MDM Narrative Medical decision making narrative: Patient likely has lateral collateral ligament injury probably from overuse, she actually does have an appointment with orthopedics in 2 days, otherwise I told her to do a splint I will give her analgesia and she will get a day off work for the next 2 days especially that carmella toney is on her feet all day at work. At this time I do not believe an x-ray is needed. Discharge Plan Triage Chief Complaint: Lower Extremity Injury ED Provider: Gene Robledo Dx/Rx/DC Orders Clinical Impression: Knee strain, Acute knee pain Instructions: ED Sprain Knee Collateral Ligaments Prescriptions: New hydrocodone-acetaminophen 5-325 mg tablet 1 tab PO QHS PRN (Reason: pain) 3 Days Qty: 10 RF: 0 No Action cholecalciferol (vitamin D3) 125 mcg (5,000 unit) capsule 125 mcg PO DAILY RF: 0 Centrum Silver Women 8 mg iron-400 mcg-300 mcg tablet 1 tab PO DAILY RF: 0 Primary Care Provider: Bradford Segundo Referrals: Bradford Segundo MD [Primary Care Provider] - 2 Days Disposition Disposition: Home, Self Care
== END 2021-12-06 10:18 | disposition home or self-care (01) ==
LOC: ED 10:15
PROVIDERS: Emergency Provider Emergency Medicine; PCP Family Medicine; Visit Provider Emergency Medicine
DX: S83.421A Sprain of lateral collateral ligament of right knee, initial encounter (principal); X58.XXXA Exposure to other specified factors, initial encounter
CPT/HCPCS: 99282

== ENCOUNTER → 2022-10-06 | Outpatient (CLI) | payer OTHER, SELFPAY ==
--- NOTE | 2022-10-06 08:51 | BI_ITS ---
MAMMOGRAPHY - BILATERAL SCREENING REASON FOR EXAM: Female, 57 years old. Routine annual screening examination. PERTINENT HISTORY: Non-contributory. TECHNIQUE: Digital bilateral breast hali (3D mammographic acquisition) in the CC and MLO projections. 2-D mediolateral oblique (MLO) and craniocaudad (CC) views of both breasts were obtained. CAD: Full Field Digital Mammography with Computer Added Detection was performed. COMPARISON: Comparison is made with prior study of August 02, 2021 and March 09, 2020. FINDINGS: Breast Composition: The breasts are almost entirely fatty. There are no dominant masses or suspicious calcifications. No other significant abnormalities are identified. There has been no significant change since the prior study. BI/SCRN MAMM (CAD)W/HALI BILAT IMPRESSION: Stable bilateral screening mammogram. Yearly follow-up mammogram recommended. (A) ASSESSMENT CATEGORY: BIRADS Category 1: Negative. A letter regarding these results will be sent to the patient by the facility within 30 days. Approximately 10% of breast cancers are not detected by mammography. A normal mammogram should not delay biopsy of a clinically suspicious abnormality. [id number] Electronically Signed: Germain Cabello MD at 10:00 EST ,
== END | disposition home or self-care (01) ==
PROVIDERS: PCP Family Medicine; Visit Provider Obstetrics & Gynecology
DX: Z12.31 Encounter for screening mammogram for malignant neoplasm of breast (principal)
CPT/HCPCS: 77063; 77067